=== PATIENT | female | born 1950 | race Caucasian/White ===

== ENCOUNTER → 2017-01-12 | Outpatient (CLI) | payer MEDICARE ==
[~2017-01-12] MED LIST: ASPIRIN CHEWABL81 MG PO; FISH OIL 10001000 MG PO; LOPRESSOR 25 MG25 MG PO; MONTELUKAST SOD10 MG PO; MULTIVITAMINS1 EAC1 PO; NITROGLYCERIN0.4 MG SL; REFRESH LIQUIGE30 ML OU; RESTASIS 0.05%1 EACH OU; SPIRIVA18 MCG INH; SYMBICORT 160-1 INHA INH; VENTOLIN/PROVE0.5 ML INH; ZOCOR40 MG PO
== END ==
LOC: HEART 5 09:31
DX: I10 Essential (primary) hypertension (principal); J44.9 Chronic obstructive pulmonary disease, unspecified; I27.2 Other secondary pulmonary hypertension
CPT/HCPCS: 93306

== ENCOUNTER → 2017-01-24 | Outpatient (CLI) | payer MEDICARE | LOC: KOH-I 15:53 | DX: M79.641 Pain in right hand (principal); M79.644 Pain in right finger(s) | CPT/HCPCS: 73130; 73140 ==

== ENCOUNTER → 2017-04-04 | Outpatient (CLI) | payer MEDICARE | LOC: US 04-02 14:45 | DX: I80.01 Phlebitis and thrombophlebitis of superficial vessels of right lower extremity (principal); M79.604 Pain in right leg | CPT/HCPCS: 93971 ==